=== PATIENT | male | born 1955 ===

== ENCOUNTER → 2016-12-27 | Outpatient (CLI) | payer MEDICAID ==
--- NOTE | 2016-12-27 08:09 | CT ---
EXAMINATION TYPE: CT brain wo/w con DATE OF EXAM: 12/27/2016 7:34 AM COMPARISON: NONE HISTORY: Patient complains of transient left eye blurriness. CT DLP: 1618.4 mGycm, Automated exposure control for dose reduction was used. CONTRAST: Patient injected with 100 mL of Omnipaque 300. CT of the brain is performed utilizing 3 mm thick sections through the posterior fossa and 3 mm thick sections through the remaining calvarium. Study is performed within 24 hours of arrival to the hospital. No abnormal hyperdensity is present to suggest an acute intracranial hemorrhage. No mass lesion is evident. No acute infarcts are evident. Ventricles and sulci are appropriate for the patient age. Paranasal sinuses and mastoid air cells within the [id number] are clear. IMPRESSIONS: 1. Normal pre and postcontrast CT brain
== END | disposition home or self-care (01) ==
LOC: RADCTMAIN 07:01
PROVIDERS: ATTEND Family Medicine
DX: H53.8 Other visual disturbances (principal)
CPT/HCPCS: 70470; Q9967

== ENCOUNTER 2017-01-14 18:36 | Emergency (ER) | payer MEDICAID ==
[2017-01-14 18:42] VITALS: BP 138/86; PULSE 85; TEMP 97.7
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
[2017-01-14 19:34] VITALS: RESP 16
== END 2017-01-14 19:30 | disposition home or self-care (01) ==
LOC: EC 18:36
DX: S61.411A Laceration without foreign body of right hand, initial encounter (principal); W33.11XA Accidental malfunction of shotgun, initial encounter; I10 Essential (primary) hypertension; Z79.82 Long term (current) use of aspirin; Z79.899 Other long term (current) drug therapy
CPT/HCPCS: 12001; 99282

== ENCOUNTER → 2017-06-18 | Outpatient (CLI) | payer MEDICAID | END | disposition home or self-care (01) | LOC: RADMRIMAIN 07:57 | PROVIDERS: ATTEND Family Medicine | DX: Z53.9 Procedure and treatment not carried out, unspecified reason (principal) ==

== ENCOUNTER → 2017-09-06 | Outpatient (CLI) | payer MEDICAID ==
[2017-09-06 16:28] LABS: EKG EKG PERFORMED
[2017-09-06 17:21] LABS: CHCM 32.7; HCT 51.3 % (39.0-53.0); HGB 16.3 gm/dL (13.0-17.5); MCH 29.4 pg (25.0-35.0); MCHC 31.9 g/dL (31.0-37.0); MCV 92.4 fL (80.0-100.0); Mean Platelet Volume 10.3; RBC 5.55 m/uL (4.30-5.90); RDW 14.1 % (11.5-15.5); WBC 8.2 k/uL (3.8-10.6)
[2017-09-06 17:30] LABS: INR 1.1 (<1.2); Partial Thromboplastin Time 23.6 sec (22.0-30.0); Prothrombin Time 10.7 sec (9.0-12.0)
[2017-09-06 17:35] LABS: Appearance,Urine Clear (Clear); Bilirubin,Urine Negative (Negative); Glucose,Urine (UA) Negative (Negative); Ketones,Urine Negative (Negative); Leukocyte Esterase,Urine Negative (Negative); Nitrite,Urine Negative (Negative); PH, Urine 5.5 (5.0-8.0); Protein,Urine Negative (Negative); Specific Gravity,Urine 1.017 (1.001-1.035); UA Billing (MACRO vs. MICRO) CHEM
[2017-09-06 17:50] LABS: ALT 31 U/L (21-72); AST 20 U/L (17-59); Alkaline Phosphatase 112 U/L (38-126); Anion Gap 10 mmol/L; Blood Urea Nitrogen 13 mg/dL (9-20); Calcium 9.6 mg/dL (8.4-10.2); Carbon Dioxide 27 mmol/L (22-30); Chloride 102 mmol/L (98-107); Glucose 79 mg/dL (74-99); Non-African American GFR(MDRD) >60 (>60 ml/min/1.73 sqM); Potassium 4.1 mmol/L (3.5-5.1); Sodium 139 mmol/L (137-145); Total Bilirubin 0.5 mg/dL (0.2-1.3); Total Protein 7.6 g/dL (6.3-8.2)
== END | disposition home or self-care (01) ==
LOC: LABPAT 15:51
PROVIDERS: ATTEND Orthopaedic Surgery
DX: Z01.810 Encounter for preprocedural cardiovascular examination (principal); Z01.812 Encounter for preprocedural laboratory examination; M17.11 Unilateral primary osteoarthritis, right knee; Z79.01 Long term (current) use of anticoagulants
CPT/HCPCS: 36415; 80053; 81003; 85027; 85610; 85730; 87070; 93005

== ENCOUNTER → 2017-09-06 | Outpatient (CLI) | payer MEDICAID ==
--- NOTE | 2017-09-06 18:56 | CT ---
EXAMINATION TYPE: CT angio head DATE OF EXAM: 09/06/2017 6:35 PM COMPARISON: NONE HISTORY: cerebral aneurysm CT DLP: 2478 mGycm Automated exposure control for dose reduction was used. TECHNIQUE: Performed with IV Contrast, patient injected with 65 mL of Omnipaque 350. There are 3-D post processed images.. FINDINGS: The noncontrast images show mild cerebral atrophy. There is no mass effect nor midline shift. There i s no sign of intracranial hemorrhage. Contrast images show patency of the vertebrobasilar artery system. There is bilateral distal vertebra l artery flow. There is patency of the anterior middle and posterior cerebral arteries. There is no mass effect. The re is no sign of neovascularity. There is no sign of stenosis. There is normal contrast opacification of the venous sinuses. IMPRESSION: NEGATIVE CT ANGIOGRAM OF THE BRAIN. NO EVIDENCE OF INTRACRANIAL ANEURYSM.
== END ==
LOC: RADCTMAIN 16:49
PROVIDERS: ATTEND Psychiatry & Neurology Neurology
DX: I67.1 Cerebral aneurysm, nonruptured (principal)
CPT/HCPCS: 70496; Q9967

== ENCOUNTER → 2018-04-18 | Outpatient (CLI) | payer MEDICAID ==
--- NOTE | 2018-04-18 11:11 | US ---
EXAMINATION TYPE: US venous doppler duplex LE LT DATE OF EXAM: 04/18/2018 10:37 AM COMPARISON: US left lower extremity February 07, 2018 CLINICAL HISTORY: M79.605 Left leg pain. Calf pain and swelling x 2 months with increase in symptoms and skin redness x 2 weeks; patient stated climbs up and down stairs of heavy equipment; on generic X arelto for ascending aortic aneurysm repair. SIDE PERFORMED: left TECHNIQUE: The lower extremity deep venous system is examined utilizing real time linear array sonog georgina with graded compression, doppler sonography and color-flow sonography. VESSELS IMAGED: Common Femoral Vein Deep Femoral Vein Greater Saphenous Vein * Femoral Vein: dual system is noted Popliteal Vein Small Saphenous Vein * Proximal Calf Veins (* superficial vessels) Left Leg: Negative for DVT. Complex fluid area = 14.9 x 5.4 x 2.0cm is seen from popliteal fossa and distally at patient's area of pain Grayscale, color doppler, spectral doppler imaging performed of the deep veins of the left lower extr emity. There is normal flow, compressibility, vascular waveforms. IMPRESSION: No ultrasound evidence for acute DVT in the left lower extremity. Duplicated superficial femoral venous system noted. At site of patient pain in the left leg there is complex elongated flui d collection measuring nearly 15 cm on long axis suspicious for hematoma. Consider tennis leg or ronny galindo related to tear of the myotendinous junction of the medial head of the gastrocnemius muscle as p ossible etiology. Finding can be correlated with MRI desired. Correlate clinically.
== END | disposition home or self-care (01) ==
LOC: RADUSWWP 09:57
PROVIDERS: ATTEND Family Medicine
DX: R60.0 Localized edema (principal); M79.605 Pain in left leg

== ENCOUNTER → 2018-04-21 | Outpatient (CLI) | payer MEDICAID ==
--- NOTE | 2018-04-21 13:00 | XR ---
EXAMINATION TYPE: XR chest 2V DATE OF EXAM: 04/21/2018 COMPARISON: 01/06/2016 HISTORY: 63 year-old male left lower leg pain TECHNIQUE: Frontal and lateral views FINDINGS: Heart upper limits of normal in size. Elongation/ectasia of the thoracic aorta with arch calcificatio ns. Strandy atelectasis in the lower lungs. No consolidation or pleural effusion. Median sternotomy w ires are present. Some external artifacts project over the anterior epigastric region on the lateral view. No retained epicardial pacer leads seen. IMPRESSION: Median sternotomy changes. No retained epicardial pacer leads seen. Clear for MRI.
== END | disposition home or self-care (01) ==
LOC: RADXRMAIN 10:24
PROVIDERS: ATTEND Orthopaedic Surgery
DX: Z01.818 Encounter for other preprocedural examination (principal); M79.662 Pain in left lower leg; Z98.890 Other specified postprocedural states
CPT/HCPCS: 71046

== ENCOUNTER → 2019-03-20 | Outpatient (CLI) | payer MEDICAID ==
--- NOTE | 2019-03-20 13:48 | CT ---
EXAMINATION TYPE: CT angio chest DATE OF EXAM: 03/20/2019 1:23 PM COMPARISON: 01/06/2016 HISTORY: History of aortic valve replacement. CT DLP: 1079.2 mGycm Automated exposure control for dose reduction was used. CONTRAST: CTA scan of the thorax is performed without and with IV Contrast, patient injected with 100 mL of Iso kathi 370, pulmonary embolism protocol. There are 3-D post processed images.. FINDINGS: There is mild subsegmental atelectasis at the lung bases. There is no evidence of a pulmonary mass. T here is atherosclerotic vascular calcification. There is aortic valve surgery. There is no evidence o f aortic aneurysm or dissection. There is no pericardial effusion. There is no pleural effusion. There are a few mediastinal lymph nodes that measure up to 1 cm. There are no hilar masses. I see no filling defects in the pulmonary arteries. There is spurring in the thoracic spine. There are diverti cula noted in the partly visualized hepatic flexure of the colon. IMPRESSION: NO EVIDENCE OF PULMONARY EMBOLISM. THERE IS MINIMAL SUBSEGMENTAL ATELECTASIS. THERE IS CLEARING OF TH E PATCHY AIRSPACE INFILTRATES IN THE LOWER LOBES COMPARED TO OLD EXAM.
== END | disposition home or self-care (01) ==
LOC: RADCTMAIN 12:29
PROVIDERS: ATTEND Surgery
DX: Z09 Encounter for follow-up examination after completed treatment for conditions other than malignant neoplasm (principal); J98.11 Atelectasis; Z95.2 Presence of prosthetic heart valve
CPT/HCPCS: 71275; Q9967

== ENCOUNTER 2019-08-11 10:25 | Emergency (ER) | payer OTHER, MEDICAID ==
[2019-08-11] MEDS ORDERED: DIPH,PERTUS(ACELL)TETVAC-LF 0.5 ML VIAL IM ONE (10:37)
[2019-08-11 10:41] VITALS: TEMP 98.3
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
[2019-08-11] MEDS ORDERED: LIDOCAINE 1% INJ 10MG/ML (20 ML MDV) SQ ONE (10:55)
[2019-08-11 11:50] LABS: Basophils # (A) 0.1 k/uL (0-0.2); Basophils % (A) 2 %; Eosinophils # (A) 0.2 k/uL (0-0.7); Eosinophils % (A) 4 %; HCT 47.4 % (39.0-53.0); HGB 16.5 gm/dL (13.0-17.5); Lymphocytes # (A) 1.3 k/uL (1.0-4.8); Lymphocytes % (A) 22 %; MCH 32.9 pg (25.0-35.0); MCHC 34.8 g/dL (31.0-37.0); MCV 94.4 fL (80.0-100.0); Mean Platelet Volume 6.6; Monocytes # (A) 0.6 k/uL (0-1.0); Monocytes % (A) 9 %; Neutrophils # (A) 3.7 k/uL (1.3-7.7); Neutrophils % (A) 60 %; Platelet Count 191 k/uL (150-450); RBC 5.02 m/uL (4.30-5.90); RDW 12.8 % (11.5-15.5); WBC 6.1 k/uL (3.8-10.6)
[2019-08-11 11:55] LABS: ALT 65 U/L (21-72); AST 44 U/L (17-59); African American GFR (CKD) >90 (>60 ml/min/1.73 sqM); Albumin 4.2 g/dL (3.5-5.0); Alcohol <10 mg/dL; Alkaline Phosphatase 76 U/L (38-126); Anion Gap 10 mmol/L; Blood Urea Nitrogen 16 mg/dL (9-20); Calcium 9.5 mg/dL (8.4-10.2); Carbon Dioxide 25 mmol/L (22-30); Chloride 104 mmol/L (98-107); Creatine Kinase 81 U/L (55-170); Glucose 105 mg/dL (74-99); Potassium 4.2 mmol/L (3.5-5.1); Sodium 139 mmol/L (137-145); Total Bilirubin 0.7 mg/dL (0.2-1.3); Total Protein 7.8 g/dL (6.3-8.2)
[2019-08-11 12:10] LABS: Partial Thromboplastin Time 24.1 sec (22.0-30.0); Prothrombin Time 10.4 sec (9.0-12.0)
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
[2019-08-11 13:28] LABS: Appearance,Urine Clear (Clear); Bilirubin,Urine Negative (Negative); Blood,Urine Negative (Negative); Color,Urine Yellow; Glucose,Urine (UA) Negative (Negative); Ketones,Urine Negative (Negative); Leukocyte Esterase,Urine Negative (Negative); Nitrite,Urine Negative (Negative); Protein,Urine Negative (Negative); Specific Gravity,Urine 1.035 (1.001-1.035); Urobilinogen,Urine <2.0 mg/dL (<2.0)
[2019-08-11 13:39] LABS: Amphetamine Screen,Urine Not Detected (NotDetected); Barbiturate Screen,Urine Not Detected (NotDetected); Benzodiazepines Screen,Urine Not Detected (NotDetected); Cocaine Screen,Urine Not Detected (NotDetected); Methadone Screen, Urine Not Detected (NotDetected); Opiate Screen,Urine Not Detected (NotDetected); Oxycodone Screen, Urine Not Detected (NotDetected); Phencyclidine Screen,Urine Not Detected (NotDetected); Tricyclic Antidepressant,Urine Not Detected (NotDetected); Urn Cannabinoid Scrn Not Detected (NotDetected)
[2019-08-11] MEDS ORDERED: ACET/COD 300 MG/30 MG STARTER PACK 6 TAB BTL PO STA (13:52)
[2019-08-11 14:13] VITALS: BP 126/88; PULSE 68; RESP 18
--- NOTE | 2019-08-14 11:01 | ECHOF ---
Referral Reason:trauma MEASUREMENTS -------- HEIGHT: 182.9 cm WEIGHT: 108.0 kg BP: RVIDd: 4.1 cm (< 3.3) IVSd: 1.2 cm (0.6 - 1.1) LVIDd: 4.2 cm (3.9 - 5.3) LVPWd: 1.1 cm (0.6 - 1.1) IVSs: 1.7 cm LVIDs: 2.9 cm LVPWs: 1.3 cm LA Diam: 4.2 cm (2.7 - 3.8) Ao Diam: 3.9 cm (2.0 - 3.7) LA Diam: 4.6 cm (2.7 - 3.8) MV E Gabino: 0.42 m/s MV DecT: 330 ms MV A Gabino: 0.91 m/s MV E/A Ratio: 0.46 AV maxP.48 mmHg AV meanP.05 mmHg RAP: 5.00 mmHg RVSP: 21.14 mmHg FINDINGS -------- Sinus rhythm. This was a techncally difficult study with suboptimal views, , Definity utilized for enhancement of i mages. The left ventricular size is normal. There is mild concentric left ventricular hypertrophy. Overa ll left ventricular systolic function is normal with, an EF between 55 - 60 %. The right ventricle is moderately enlarged. The left atrium is mildly dilated. The right atrial size is normal. 1.5MGOF lUMASON UTILIZED FOR ENHANCEMENT OF IMAGES. Peak/mean gradient across the Aortic Valve is 14.48mmHg / 9.05mmHg. Normally functioning bioprosthe tic valve. Mild mitral annular calcification present. Mild mitral regurgitation is present. Mild tricuspid regurgitation present. Right ventricular systolic pressure is normal at < 35 mmHg. There is no evidence of pulmonary hypertension. There is no pulmonic regurgitation present. The aortic root size is normal. Echo free space indicative of a pericardial fat pad. CONCLUSIONS -------- 1. Sinus rhythm. 2. This was a techncally difficult study with suboptimal views, , Definity utilized for enhancement o f images. 3. The left ventricular size is normal. 4. There is mild concentric left ventricular hypertrophy. 5. Overall left ventricular systolic function is normal with, an EF between 55 - 60 %. 6. The right ventricle is moderately enlarged. 7. The left atrium is mildly dilated. 8. The right atrial size is normal. 9. 1.5MGOF lUMASON UTILIZED FOR ENHANCEMENT OF IMAGES. 10. Peak/mean gradient across the Aortic Valve is 14.48mmHg / 9.05mmHg. 11. Normally functioning bioprosthetic valve. 12. Mild mitral annular calcification present. 13. Mild mitral regurgitation is present. 14. Mild tricuspid regurgitation present. 15. Right ventricular systolic pressure is normal at < 35 mmHg. 16. There is no evidence of pulmonary hypertension. 17. There is no pulmonic regurgitation present. 18. The aortic root size is normal. 19. Echo free space indicative of a pericardial fat pad. HAND WASHER: Marjan Escalera RDCS
== END 2019-08-11 14:11 | disposition home or self-care (01) ==
LOC: EC 10:25
DX: S01.511A Laceration without foreign body of lip, initial encounter (principal); I10 Essential (primary) hypertension; Z79.82 Long term (current) use of aspirin; Z79.899 Other long term (current) drug therapy; V43.52XA Car driver injured in collision with other type car in traffic accident, initial encounter; Y92.410 Unspecified street and highway as the place of occurrence of the external cause
CPT/HCPCS: 36415; 93005; 93306; 86900; 86901; 80053; 82550; 84484; 85025; 85610; 85730; 86850; 81003; 80306; 80320; 72125; 70450; 71260; 74177; 90715; 99284; 12011; 90471; J2001; Q9950; Q9967

== ENCOUNTER → 2020-04-27 | Outpatient (CLI) | payer MEDICAID, MEDICARE, BC ==
--- NOTE | 2020-05-06 12:30 | ECHOF ---
Referral Reason:cad MEASUREMENTS -------- HEIGHT: 182.9 cm WEIGHT: 104.3 kg BP: RVIDd: 3.8 cm (< 3.3) IVSd: 1.6 cm (0.6 - 1.1) LVIDd: 3.8 cm (3.9 - 5.3) LVPWd: 1.4 cm (0.6 - 1.1) IVSs: 1.8 cm LVIDs: 2.3 cm LVPWs: 1.3 cm LA Diam: 4.2 cm (2.7 - 3.8) LAESV Index (A-L): 32.74 ml/m Ao Diam: 4.1 cm (2.0 - 3.7) MV EXCURSION: 13.601 mm (> 18.000) MV EF SLOPE: 51 mm/s (70 - 150) EPSS: 0.9 cm MV E Gabino: 0.54 m/s MV DecT: 248 ms MV A Gabino: 0.96 m/s MV E/A Ratio: 0.56 AV maxP.54 mmHg AV maxP.54 mmHg AV meanP.49 mmHg RAP: 5.00 mmHg RVSP: 18.48 mmHg FINDINGS -------- Sinus rhythm. This was a technically adequate study. The left ventricular size is normal. There is moderate concentric left ventricular hypertrophy. O verall left ventricular systolic function is low-normal with, an EF between 50 - 55 %. The right ventricle is moderately enlarged. LA is midly dilated 29-33ml/m2. The right atrial size is normal. Peak/mean gradient across the Aortic Valve is 14.54mmHg / 8.49mmHg. Normally functioning bioprosthe tic valve. Calcified AV Mild mitral annular calcification present. Mild mitral regurgitation is present. Mild tricuspid regurgitation present. Right ventricular systolic pressure is normal at < 35 mmHg. Trace/mild (physiologic) pulmonic regurgitation. 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 There is no pericardial effusion. CONCLUSIONS -------- 1. There is moderate concentric left ventricular hypertrophy. 2. Overall left ventricular systolic function is low-normal with, an EF between 50 - 55 %. 3. The right ventricle is moderately enlarged. 4. LA is midly dilated 29-33ml/m2. 5. Peak/mean gradient across the Aortic Valve is 14.54mmHg / 8.49mmHg. 6. Normally functioning bioprosthetic valve. 7. Calcified AV 8. Mild mitral annular calcification present. 9. Mild mitral regurgitation is present. 10. Mild tricuspid regurgitation present. 11. Trace/mild (physiologic) pulmonic regurgitation. 12. 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 13. There is no pericardial effusion. TABULATING CLERK: Marjan Escalera RDCS
== END | disposition home or self-care (01) ==
LOC: RADECHMAIN 10:41
PROVIDERS: ATTEND Internal Medicine Interventional Cardiology
DX: I08.3 Combined rheumatic disorders of mitral, aortic and tricuspid valves (principal)
CPT/HCPCS: 93306

== ENCOUNTER 2020-10-17 07:29 | Emergency (ER) | payer MEDICAID, MEDICARE, BC ==
[2020-10-17] MEDS ORDERED: ACETAMINOPHEN TAB 500 MG TAB PO STA (07:55)
[2020-10-17 08:07] LABS: Basophils # (A) 0.2 k/uL (0-0.2); Basophils % (A) 3 %; Eosinophils # (A) 0.1 k/uL (0-0.7); Eosinophils % (A) 2 %; HGB 18.5 gm/dL (13.0-17.5); Lymphocytes # (A) 0.8 k/uL (1.0-4.8); Lymphocytes % (A) 11 %; MCH 33.3 pg (25.0-35.0); MCHC 34.9 g/dL (31.0-37.0); MCV 95.4 fL (80.0-100.0); Mean Platelet Volume 7.6; Monocytes # (A) 0.7 k/uL (0-1.0); Monocytes % (A) 10 %; Neutrophils % (A) 72 %; Platelet Count 151 k/uL (150-450); RBC 5.55 m/uL (4.30-5.90); RDW 12.7 % (11.5-15.5)
--- NOTE | 2020-10-17 08:14 | ED ---
General Adult HPI - General Chief complaint: Chest Pain Stated complaint: chest pain Time Seen by Provider: 10/17/20 07:30 Source: patient, RN notes reviewed, old records reviewed Mode of arrival: wheelchair Limitations: no limitations - History of Present Illness Initial comments: This is a 65-year-old male with a past medical history significant for an aortic graft as well as pulmonary embolisms. Patient comes in today because had a couple days of upper respiratory symptoms. Patient states he's been having some left-sided chest pain on and off for a few days as well. Patient states he doesn't believe he has fever. Patient states he does have a slight cough occasionally. Patient states he has slight shortness of breath. Patient denies any swelling legs or calf tenderness. Patient denies any headache patient denies numbness weakness. Patient denies lightheadedness or dizziness. - Related Data Home Medications Medication Instructions Recorded Confirmed Aspirin 81 mg PO DAILY 02/07/18 10/17/20 Metoprolol Tartrate [Lopressor] 12.5 mg PO BID 02/07/18 10/17/20 Multivit-Min/FA/Lycopen/Lutein 1 tab PO DAILY 08/11/19 10/17/20 [Centrum Silver Tablet] Ascorbic Acid [Vitamin C] 500 mg PO DAILY 10/17/20 10/17/20 Cholecalciferol [Vitamin D3 (25 1,000 unit PO DAILY 10/17/20 10/17/20 Mcg = 1000 Iu)] Zinc 50 mg PO DAILY 10/17/20 10/17/20 Allergies Allergy/AdvReac Type Severity Reaction Status Date / Time morphine Allergy Itching Verified 10/17/20 08:30 Review of Systems ROS Statement: Those systems with pertinent positive or pertinent negative responses have been documented in the HPI. ROS Other: All systems not noted in ROS Statement are negative. Past Medical History Past Medical History: Hypertension Additional Past Medical History / Comment(s): pneumonia History of Any Multi-Drug Resistant Organisms: None Reported Past Surgical History: Back Surgery Additional Past Surgical History / Comment(s): AAA repair Past Anesthesia/Blood Transfusion Reactions: No Reported Reaction Additional Past Anesthesia/Blood Transfusion Reaction / Comment(s): No reaction to blood transfusion received 40 years ago. Past Psychological History: No Psychological Hx Reported Smoking Status: Never smoker Past Alcohol Use History: Occasional Past Drug Use History: None Reported - Past Family History Sister(s) Family Medical History: Cancer Additional Family Medical History / Comment(s): Liver Cancer General Exam - General Exam Comments Initial Comments: GENERAL: Patient is well-developed and well-nourished. Patient is nontoxic and well-hydrated and is in mild distress. ENT: Neck is soft and supple. No significant lymphadenopathy is noted. Oropharynx is clear. Moist mucous membranes. Neck has full range of motion without eliciting any pain. EYES: The sclera were anicteric and conjunctiva were pink and moist. Extraocular movements were intact and pupils were equal round and reactive to light. Eyelids were unremarkable. PULMONARY: Unlabored respirations. Good breath sounds bilaterally. No audible rales rhonchi or wheezing was noted. CARDIOVASCULAR: There is a regular rate and rhythm without any murmurs gallops or rubs. ABDOMEN: Soft and nontender with normal bowel sounds. SKIN: Skin is clear with no lesions or rashes and otherwise unremarkable. NEUROLOGIC: Patient is alert and oriented x3. Cranial nerves II through XII are grossly intact. Motor and sensory are also intact. Normal speech, volume and content. Symmetrical smile. MUSCULOSKELETAL: Normal extremities with adequate strength and full range of motion. LYMPHATICS: No significant lymphadenopathy is noted PSYCHIATRIC: Normal psychiatric evaluation. Limitations: no limitations Course Vital Signs 10/17/20 10/17/20 10/17/20 07:32 07:38 07:40 Temperature 98.7 F 101 F H Pulse Rate 102 H Respiratory 16 20 Rate Blood Pressure 134/86 O2 Sat by Pulse 95 Oximetry 10/17/20 10/17/20 10/17/20 08:08 09:29 10:30 Temperature 100.0 F H Pulse Rate 96 92 Respiratory 21 20 Rate Blood Pressure 120/74 113/77 O2 Sat by Pulse 94 L 96 98 Oximetry 10/17/20 11:23 Temperature Pulse Rate 92 Respiratory 20 Rate Blood Pressure 118/77 O2 Sat by Pulse 97 Oximetry Medical Decision Making - Medical Decision Making EKG shows sinus tachycardia at 101 bpm VT interval 194 QRS is 120 QT intervals 340 QTC is 440. Patient's EKG shows no ST segment elevation. CT showed no centralized PE however did show multiple areas of infiltrate consistent with possibly septic emboli or neoplasm. CAT scan came back at 1005 and was diagnosed with possible infiltrate I ordered an echocardiogram I started the patient on antibiotics. I spoke with the [facility] emergency department and they refused the transfer of the patient. I spoke with Dr. Cullen who is partner and he spoke with the ER and they did accept the patient transferred this time - Lab Data Result diagrams: 10/17/20 07:53 10/17/20 07:53 Lab Results 10/17/20 10/17/20 10/17/20 Range/Units 07:53 07:53 07:53 WBC 7.0 (3.8-10.6) k/uL RBC 5.55 (4.30-5.90) m/uL Hgb 18.5 H (13.0-17.5) gm/dL Hct 53.0 (39.0-53.0) % MCV 95.4 (80.0-100.0) fL MCH 33.3 (25.0-35.0) pg MCHC 34.9 (31.0-37.0) g/dL RDW 12.7 (11.5-15.5) % Plt Count 151 (150-450) k/uL MPV 7.6 Neutrophils % 72 % Lymphocytes % 11 % Monocytes % 10 % Eosinophils % 2 % Basophils % 3 % Neutrophils # 5.0 (1.3-7.7) k/uL Lymphocytes # 0.8 L (1.0-4.8) k/uL Monocytes # 0.7 (0-1.0) k/uL Eosinophils # 0.1 (0-0.7) k/uL Basophils # 0.2 (0-0.2) k/uL PT 11.1 (9.0-12.0) sec INR 1.1 (<1.2) APTT 25.2 (22.0-30.0) sec D-Dimer 1.35 H (<0.60) mg/L FEU Sodium 135 L (137-145) mmol/L Potassium 4.4 (3.5-5.1) mmol/L Chloride 101 (98-107) mmol/L Carbon Dioxide 23 (22-30) mmol/L Anion Gap 11 mmol/L BUN 10 (9-20) mg/dL Creatinine 0.87 (0.66-1.25) mg/dL Est GFR (CKD-EPI)AfAm >90 (>60 ml/min/1.73 sqM) Est GFR (CKD-EPI)NonAf >90 (>60 ml/min/1.73 sqM) Glucose 123 H (74-99) mg/dL Plasma Lactic Acid Candido (0.7-2.0) mmol/L Calcium 9.4 (8.4-10.2) mg/dL Magnesium 2.0 (1.6-2.3) mg/dL Total Bilirubin 1.2 (0.2-1.3) mg/dL AST 38 (17-59) U/L ALT 46 (4-49) U/L Alkaline Phosphatase 75 (38-126) U/L Lactate Dehydrogenase 638 H (313-618) U/L C-Reactive Protein 58.2 H (<10.0) mg/L Total Protein 8.5 H (6.3-8.2) g/dL Albumin 4.5 (3.5-5.0) g/dL Coronavirus (PCR) (Not Detectd) Influenza Type A (PCR) (Not Detectd) Influenza Type B (PCR) (Not Detectd) RSV (PCR) (Not Detectd) SARS-CoV-2 (PCR) (Not Detectd) 10/17/20 10/17/20 10/17/20 Range/Units 07:53 07:53 08:52 WBC (3.8-10.6) k/uL RBC (4.30-5.90) m/uL Hgb (13.0-17.5) gm/dL Hct (39.0-53.0) % MCV (80.0-100.0) fL MCH (25.0-35.0) pg MCHC (31.0-37.0) g/dL RDW (11.5-15.5) % Plt Count (150-450) k/uL MPV Neutrophils % % Lymphocytes % % Monocytes % % Eosinophils % % Basophils % % Neutrophils # (1.3-7.7) k/uL Lymphocytes # (1.0-4.8) k/uL Monocytes # (0-1.0) k/uL Eosinophils # (0-0.7) k/uL Basophils # (0-0.2) k/uL PT (9.0-12.0) sec INR (<1.2) APTT (22.0-30.0) sec D-Dimer (<0.60) mg/L FEU Sodium (137-145) mmol/L Potassium (3.5-5.1) mmol/L Chloride (98-107) mmol/L Carbon Dioxide (22-30) mmol/L Anion Gap mmol/L BUN (9-20) mg/dL Creatinine (0.66-1.25) mg/dL Est GFR (CKD-EPI)AfAm (>60 ml/min/1.73 sqM) Est GFR (CKD-EPI)NonAf (>60 ml/min/1.73 sqM) Glucose (74-99) mg/dL Plasma Lactic Acid Candido 1.5 (0.7-2.0) mmol/L Calcium (8.4-10.2) mg/dL Magnesium (1.6-2.3) mg/dL Total Bilirubin (0.2-1.3) mg/dL AST (17-59) U/L ALT (4-49) U/L Alkaline Phosphatase (38-126) U/L Lactate Dehydrogenase (313-618) U/L C-Reactive Protein (<10.0) mg/L Total Protein (6.3-8.2) g/dL Albumin (3.5-5.0) g/dL Coronavirus (PCR) Not Detected (Not Detectd) Influenza Type A (PCR) Not Detected (Not Detectd) Influenza Type B (PCR) Not Detected (Not Detectd) RSV (PCR) Not Detected (Not Detectd) SARS-CoV-2 (PCR) Not Detected (Not Detectd) Critical Care Time Critical Care Time: Yes Total Critical Care Time: 35 Disposition Clinical Impression: Acute septic pulmonary embolism Disposition: OTHER INSTITUTION NOT DEFINED Referrals: None,Stated [Primary Care Provider] - 1-2 days Time of Disposition: 12:17 - Out of Hospital Transfer - Req. Specs Out of Hospital Transfer - Requested Specifics: Other Emergency Center ([facility] emergency department)
[2020-10-17 08:30] LABS: INR 1.1 (<1.2); Partial Thromboplastin Time 25.2 sec (22.0-30.0); Prothrombin Time 11.1 sec (9.0-12.0)
[2020-10-17 08:32] LABS: ALT 46 U/L (4-49); AST 38 U/L (17-59); African American GFR (CKD) >90 (>60 ml/min/1.73 sqM); Albumin 4.5 g/dL (3.5-5.0); Alkaline Phosphatase 75 U/L (38-126); Anion Gap 11 mmol/L; Blood Urea Nitrogen 10 mg/dL (9-20); Calcium 9.4 mg/dL (8.4-10.2); Carbon Dioxide 23 mmol/L (22-30); Chloride 101 mmol/L (98-107); Glucose 123 mg/dL (74-99); LDH 638 U/L (313-618); Non-African American GFR(CKD) >90 (>60 ml/min/1.73 sqM); Potassium 4.4 mmol/L (3.5-5.1); Sodium 135 mmol/L (137-145); Total Bilirubin 1.2 mg/dL (0.2-1.3); Total Protein 8.5 g/dL (6.3-8.2)
[2020-10-17 08:35] LABS: D-Dimer 1.35 mg/L FEU (<0.60)
[2020-10-17 08:56] LABS: C Reactive Protein 58.2 mg/L (<10.0)
--- NOTE | 2020-10-17 09:53 | CT ---
EXAMINATION TYPE: CT chest angio for PE DATE OF EXAM: 10/17/2020 COMPARISON: Chest CT August 11, 2019 HISTORY: Difficulty breathing CT DLP: 464.1 mGycm Automated exposure control for dose reduction was used. CONTRAST: CT Chest for pulmonary embolism performed with without and with IV Contrast, patient injected with 10 0 ml mL of Isovue 370. FINDINGS: LUNGS: Dependent atelectasis in the bilateral lower lobes. Low lung volumes. There are 4 areas of mas slike consolidation bilaterally for reference right middle lobe 2.1 x 1.4 cm lesion with air bronchog agata axial image 76. For reference peripheral inferior left upper lobe 1.7 x 1.3 cm nodule or nodular consolidation axial image 59. For reference superior right lower lobe 1.8 x 1.6 cm nodule or nodular consolidation with groundglass opacities and central air bronchograms axial image 51. Smaller 10 mm n odule left lower lobe superiorly abutting fissure axial image 48. MEDIASTINUM: There is suboptimal bolus with heterogeneity in the periphery most dense contrast in the SVC, equal contrast in right and left heart systems. There is no central pulmonary emboli. No defini tive peripheral pulmonary emboli. Suboptimal evaluation for segmental and subsegmental PE. There are enlarged thoracic lymph nodes. Several enlarged right hilar lymph node axial image 72, enlarged centr al right hilar lymph node for reference measuring 1.9 x 1.6 cm axial image 61. Prominent but subcenti meter prevascular and AP window lymph nodes. Borderline enlarged subcarinal lymph node image 63. Main pulmonary artery at 2.9 cm axial image 59, CT finding suggesting mild underlying pulmonary hypertens ion. No thoracic aortic aneurysm or dissection. Moderate mixed plaque in the thoracic aorta. Coronary artery calcification is present. Overlying sternal wires . OTHER: Slight scoliotic curvature with multilevel spurring. IMPRESSION: 1. Suboptimal study without central pulmonary embolism. Cannot entirely excluded segmental and subseg mental PE on this exam. 2. Bilateral multifocal areas of nodular consolidation and/or nodules, consider septic emboli or bila teral acute infectious process. Underlying nodules or neoplasm not excluded. Enlarged right hilar richard nopathy noted.
[2020-10-17] MEDS ORDERED: VANCOMYCIN IV PER PHARMACY 1 EACH MISC MISCELLANE PRN (11:11)
[2020-10-17] MEDS ORDERED: VANCOMYCIN 2,000 MG in SODIUM CHLORIDE 0.9% 500 ML 500 ML IVPB ONE (11:30)
[2020-10-17 13:34] VITALS: BP 128/90; PULSE 89; RESP 18; TEMP 98.3
--- NOTE | 2020-10-17 13:47 | ECHOF ---
Referral Reason:Septic emboli MEASUREMENTS -------- HEIGHT: 182.9 cm WEIGHT: 104.3 kg BP: 113/77 IVSd: 1.4 cm (0.6 - 1.1) LVIDd: 3.9 cm (3.9 - 5.3) LVPWd: 1.4 cm (0.6 - 1.1) IVSs: 1.9 cm LVIDs: 2.3 cm LVPWs: 1.8 cm LA Diam: 3.8 cm (2.7 - 3.8) RVIDd: 3.2 cm (< 3.3) LAESV Index (A-L): 21.38 ml/m Ao Diam: 3.9 cm (2.0 - 3.7) EPSS: 1.3 cm MV E Gabino: 0.65 m/s MV DecT: 271 ms MV A Gabino: 1.00 m/s MV E/A Ratio: 0.65 AV maxP.83 mmHg AV meanP.04 mmHg RAP: 15.00 mmHg RVSP: 33.73 mmHg MV EF SLOPE: 77.44 mm/s (70 - 150) MV EXCURSION: 7.29 mm (> 18.000) FINDINGS -------- Sinus rhythm. This was a technically difficult study with suboptimal views. The left ventricular size is normal. There is moderate concentric left ventricular hypertrophy. O verall left ventricular systolic function is normal with, an EF between 60 - 65 %. The right ventricle is normal in size. Normal LA size by volume 22+/-6 ml/m2. The right atrium is normal in size. Aneurysmal Interatrial septum. There is mild aortic valve sclerosis. Peak/mean gradient across the Aortic Valve is 12.83mmHg / 7.0 4mmHg. AOV anurysm repair 2015. [place] valve in place Can not exclude vegetation Mild mitral annular calcification present. Mild tricuspid regurgitation present. There is borderline pulmonary hypertension. The right ventr icular systolic pressure, as measured by Doppler, is 33.73mmHg. Trace/mild (physiologic) pulmonic regurgitation. The aortic root is dilated measuring 3.9cm. The inferior vena cava is dilated with no significant inspiratory collapse which is consistent estima maurice right atrial pressure of >15 mmHg. There is no pericardial effusion. Lumason used CONCLUSIONS -------- 1. The left ventricular size is normal. 2. There is moderate concentric left ventricular hypertrophy. 3. Overall left ventricular systolic function is normal with, an EF between 60 - 65 %. 4. AOV anurysm repair 2014. [place] valve in place 5. Can not exclude vegetation 6. Lumason used 7. Aneurysmal Interatrial septum. 8. There is mild aortic valve sclerosis. 9. Peak/mean gradient across the Aortic Valve is 12.83mmHg / 7.04mmHg. 10. Mild mitral annular calcification present. 11. Mild tricuspid regurgitation present. 12. There is borderline pulmonary hypertension. 13. The right ventricular systolic pressure, as measured by Doppler, is 33.73mmHg. 14. Trace/mild (physiologic) pulmonic regurgitation. 15. The aortic root is dilated measuring 3.9cm. 16. The inferior vena cava is dilated with no significant inspiratory collapse which is consistent es timated right atrial pressure of >15 mmHg. 17. There is no pericardial effusion. CAKE PRESS OPERATOR HELPER: Anna Marie Shirley RDCS
[2020-10-18] MEDS ORDERED: VANCOMYCIN 1,750 MG in SODIUM CHLORIDE 0.9% 500 ML 500 ML IVPB SCH ×2
== END 2020-10-17 13:57 | disposition other institution (70) ==
LOC: EC 07:29
DX: I26.90 Septic pulmonary embolism without acute cor pulmonale (principal); I10 Essential (primary) hypertension; Z79.899 Other long term (current) drug therapy; Z20.828 Contact with and (suspected) exposure to other viral communicable diseases; Z88.5 Allergy status to narcotic agent
CPT/HCPCS: 36415; 93005; 93306; 85379; 80053; 82728; 83605; 83615; 83735; 85025; 85610; 85730; 86140; 87040; 84145; 87635; 87636; 71275; 99291; 96365; 96367; 96366; J3370; J0696; Q9950; Q9967

== ENCOUNTER → 2021-01-17 | Outpatient (CLI) | payer MEDICAID, MEDICARE, BC ==
[~2021-01-17] MED LIST: REGADENOSON 0.4 MG/5 ML SYRINGE IV PRN
--- NOTE | 2021-01-17 14:58 | NM ---
EXAMINATION TYPE: NM stress lexiscan cardiolite DATE OF EXAM: 01/17/2021 COMPARISON: 09/30/2013 HISTORY: 65-year-old male CAD, I25.10. TECHNIQUE: After the intravenous administration of 10.3 mCi Tc 99m Sestamibi - Cardiolite resting SP ECT images acquired 55 minutes post injection. The patient received 0.4mg Lexiscan, 26 mCi Tc 99m Sestamibi - Stress images obtained 30 minutes post injection FINDINGS: Review of stress and rest SPECT images demonstrates decreased perfusion along the inferolateral mid a nd apical wall on stress. However, this is not well corroborated on the polar maps. Gated analysis sh ows normal wall motion but limited augmentation of the inferolateral wall and an estimated left ventr icular ejection fraction of 61 %. TID is calculated at 1.08, upper limits of normal. IMPRESSION: Reversibility involving the inferolateral mid to apical wall may reflect diaphragmatic attenuation as it is not corroborated on the polar maps. Further clinical correlation and evaluation as indicated.
--- NOTE | 2021-01-18 08:35 | EST ---
EXERCISE STRESS AGE: 65 SEX: Male. HT: 6 ft. WT: 235 lbs. PROTOCOL: Lexiscan Cardiolite STAGE: N/A DURATION OF EXERCISE: N/A HEART RATE REST: 66 BLOOD PRESSURE REST: 133/76 MAXIMUM HEART RATE ACHIEVED: 88 MAXIMUM BLOOD PRESSURE: 133/76 85% MPHR: 132 100% MPHR: 155 METS: N/A INDICATIONS: CAD CLINICAL INFORMATION: Baseline EKG revealed normal sinus rhythm with LVH by voltage criteria and leftward axis. With Lexiscan administration, heart rate changed from 66 to 88 beats per minute and blood pressure changed from 133/76 to 121/77, and came back to baseline. No significant symptoms were reported. EKG was unremarkable. By EKG criteria, this is unremarkable Lexiscan stress test. The nuclear scan results which are more pertinent will be reported by the radiologist. CANDICE / NICOLE: [id number] /
== END | disposition home or self-care (01) ==
LOC: RADNMMAIN 07:11
PROVIDERS: ATTEND Internal Medicine Interventional Cardiology
DX: I25.10 Atherosclerotic heart disease of native coronary artery without angina pectoris (principal)
CPT/HCPCS: 93017; 78452; A9500; J2785